=== PATIENT | male | born 2000 | race American Indian/Alaskan Native ===

== ENCOUNTER 2019-05-07 12:09 | Emergency (ER) | payer OTHER ==
[2019-05-07 12:22] VITALS: BP 123/62
--- NOTE | 2019-05-07 12:30 | Event Note ---
ED Screening Note Date of service: 05/07/19 Time: 11:45 ED Screening Note: 19 y/o male c/o blood in urine and back pain. This initial assessment/diagnostic orders/clinical plan/treatment(s) is/are subject to change based on patients health status, clinical progression and re- assessment by fellow clinical providers in the ED. Further treatment and workup at subsequent clinical providers discretion. Patient/guardian urged not to elope from the ED as their condition may be serious if not clinically assessed and managed. Initial orders include:
--- NOTE | 2019-05-07 14:52 | Event Note ---
Face to Face: For this encounter I have reviewed the PA/[employer] documentation, treatment plan, medical decision making, and I had face to face time with this patient. I evaluated Mr. Gonzalez. He explained that he has had bilateral intermittent nipple discharge for the past several months. Differential diagnosis includes lactorrhea due to prolactinoma. I strongly encouraged him to follow up with our outpatient physician.
--- NOTE | 2019-05-07 15:45 | Emergency Department Report ---
ED General Adult HPI - General Chief complaint: Urogenital-Male Stated complaint: CHEST PAIN/NIPPLE DISCHARGE Time Seen by Provider: 05/07/19 15:00 Source: patient Mode of arrival: Ambulatory Limitations: No Limitations - History of Present Illness Initial comments: Patient reports episodic bilateral nipple discharge with breast tenderness initially started 3-4 months ago Complaint: nipple discharge Onset/Timin -: month(s) Location: chest Radiation: non-radiation Severity scale (0 -10): 4 Quality: aching Consistency: intermittent Improves with: other (terese stimulation) Worsens with: none Associated Symptoms: denies other symptoms. denies: confusion, chest pain, cough, diaphoresis, fever/chills, headaches, loss of appetite, malaise, nausea/vomiting, rash, seizure, shortness of breath, syncope, weakness Treatments Prior to Arrival: none - Related Data Allergies Allergy/AdvReac Type Severity Reaction Status Date / Time No Known Allergies Allergy Unverified 05/07/19 12:13 ED Review of Systems ROS: Stated complaint: CHEST PAIN/NIPPLE DISCHARGE Other details as noted in HPI Constitutional: denies: chills, fever Eyes: denies: eye pain, eye discharge, vision change ENT: denies: ear pain, throat pain, dental pain, hearing loss, epistaxis, congestion Respiratory: denies: cough, orthopnea, shortness of breath, stridor, wheezing, other Cardiovascular: denies: chest pain, palpitations, dyspnea on exertion, orthopnea, edema, syncope, paroxysmal nocturnal dyspnea Endocrine: no symptoms reported Gastrointestinal: denies: abdominal pain, nausea, diarrhea Genitourinary: denies: urgency, dysuria Musculoskeletal: other (bilateral breast). denies: back pain, joint swelling, arthralgia Skin: denies: rash, lesions Neurological: denies: headache, weakness, paresthesias Psychiatric: denies: anxiety, depression Hematological/Lymphatic: denies: easy bleeding, easy bruising ED Past Medical Hx - Past Medical History Previous Medical History?: No - Surgical History Past Surgical History?: No - Social History Smoking Status: Never Smoker Substance Use Type: Alcohol ED Physical Exam - General Limitations: No Limitations General appearance: alert, in no apparent distress - Neck Neck exam: Present: normal inspection, full ROM. Absent: tenderness, meningismus, lymphadenopathy, thyromegaly - Respiratory Respiratory exam: Present: normal lung sounds bilaterally. Absent: respiratory distress, wheezes, rales, rhonchi, stridor - Cardiovascular Cardiovascular Exam: Present: bradycardia, normal heart sounds, other (TTP right and left breast, all quadrants, no discharge noted at this time). Absent: systolic murmur, diastolic murmur, rubs, gallop - Extremities Exam Extremities exam: Present: normal inspection, full ROM, normal capillary refill. Absent: tenderness, pedal edema, joint swelling, calf tenderness - Back Exam Back exam: Present: normal inspection, full ROM. Absent: tenderness, CVA tenderness (R), CVA tenderness (L), muscle spasm, paraspinal tenderness, vertebral tenderness, rash noted - Neurological Exam Neurological exam: Present: alert, oriented X3, CN II-XII intact, normal gait, reflexes normal. Absent: motor sensory deficit - Psychiatric Psychiatric exam: Present: normal affect, normal mood - Skin Skin exam: Present: warm, dry, intact, normal color. Absent: rash ED Course Vital Signs 05/07/19 12:19 Temperature 97.7 F Pulse Rate 48 L Respiratory 18 Rate Blood Pressure 123/62 O2 Sat by Pulse 100 Oximetry ED Medical Decision Making - Lab Data Vital Signs 05/07/19 12:19 Temperature 97.7 F Pulse Rate 48 L Respiratory 18 Rate Blood Pressure 123/62 O2 Sat by Pulse 100 Oximetry - Medical Decision Making During the course of ED, all other systems are unremarkable except for documentation in HPI. Patient instructed to follow up with Dr. Gonzalez for further outpatient studies, he verbalized understanding - Differential Diagnosis Breast Pain, Nipple Discharge, Anterior Pituatary Gland Critical care attestation.: If time is entered above; I have spent that time in minutes in the direct care of this critically ill patient, excluding procedure time. ED Disposition Clinical Impression: Nipple discharge in male Disposition: DC-01 TO HOME OR SELFCARE Is pt being admited?: No Does the pt Need Aspirin: No Condition: Stable Instructions: Mammogram (ED) Additional Instructions: Follow up with Dr. Gonzalez for further evaluation of your concerns Referrals: JULIANNA GONZALEZ MD [Staff Physician] - 3-5 Days Forms: Work/School Release Form(ED) Time of Disposition: 15:45
== END 2019-05-07 16:00 | disposition home or self-care (01) ==
LOC: ED 12:09
DX: N64.52 Nipple discharge (principal)
CPT/HCPCS: 99282